=== PATIENT | male | born 1995 | race Caucasian/White ===

== ENCOUNTER → 2023-08-25 | Outpatient (CLI) | payer OTHER | LOC: MHCPAIN 15:15 | DX: M48.061 Spinal stenosis, lumbar region without neurogenic claudication (principal); M51.36 Other intervertebral disc degeneration, lumbar region | CPT/HCPCS: G0463 ==

== ENCOUNTER → 2023-09-02 | Outpatient (CLI) | payer OTHER | LOC: MHCPAIN 08:43 | DX: M47.817 Spondylosis without myelopathy or radiculopathy, lumbosacral region (principal) | CPT/HCPCS: J0665 ==

== ENCOUNTER → 2023-09-30 | Outpatient (CLI) | payer OTHER | LOC: MHCPAIN 09:00 | DX: M47.817 Spondylosis without myelopathy or radiculopathy, lumbosacral region (principal); M54.50 Low back pain, unspecified | CPT/HCPCS: J0665 ==

== ENCOUNTER → 2024-03-16 | Outpatient (CLI) | payer OTHER ==
[~2024-03-16] MED LIST: Iohexol 300 - 10 ML VIAL ONE
== END ==
LOC: MHCPAIN 08:13
DX: M54.50 Low back pain, unspecified (principal); M53.3 Sacrococcygeal disorders, not elsewhere classified; M46.1 Sacroiliitis, not elsewhere classified
CPT/HCPCS: G0260; J0665; J1010; Q9967

== ENCOUNTER → 2024-04-21 | Outpatient (CLI) | payer OTHER | LOC: MHCPAIN 10:31 | DX: M43.16 Spondylolisthesis, lumbar region (principal); M47.816 Spondylosis without myelopathy or radiculopathy, lumbar region; M48.061 Spinal stenosis, lumbar region without neurogenic claudication | CPT/HCPCS: G0463 ==

== ENCOUNTER → 2024-05-15 | Outpatient (CLI) | payer OTHER ==
[~2024-05-15] MED LIST changes: +Lidocaine PF 2% (20 MG/ML) 2 ML VIAL ONE
== END ==
LOC: MHCPAIN 13:30
DX: M54.17 Radiculopathy, lumbosacral region (principal); M54.50 Low back pain, unspecified
CPT/HCPCS: J1100; Q9967

== ENCOUNTER → 2024-07-12 | Outpatient (CLI) | payer OTHER | LOC: MHCPAIN 08:14 | DX: M43.16 Spondylolisthesis, lumbar region (principal); M47.816 Spondylosis without myelopathy or radiculopathy, lumbar region; M48.061 Spinal stenosis, lumbar region without neurogenic claudication | CPT/HCPCS: G0463 ==